=== PATIENT | female | born 1970 | race Caucasian/White ===

== ENCOUNTER 2019-07-26 03:31 | Inpatient (IN) | payer OTHER, SELFPAY ==
[2019-07-26] VITALS (16 sets, daily range): BP systolic 101–164; BP diastolic 70–103; PULSE 80–100; RESP 9–20; TEMP 36.1–36.4; O2SAT 97–100; BMI 16.0
--- NOTE | ~2019-07-26 | CT_ITS ---
EXAMINATION: CT brain wo con DATE: 07/26/2019 06:18 INDICATION: Altered mental status. TECHNIQUE: Computed tomography (CT) of the head was performed without intravenous contrast. The mA wa s adjusted according to patient size. Iterative reconstruction technique was employed. The dose-lengt h product was 605.33 mGy-cm. COMPARISON: None FINDINGS: There is no intracranial hemorrhage, acute infarction, or abnormal intracranial mass lesion . The ventricles are normal in size. There is mild mucosal thickening in the paranasal sinuses. The o rbits are normal. The mastoid air cells are normal. There are numerous masses in the neck and scalp. IMPRESSION: 1. Normal brain. 2. Masses in the neck and scalp, consistent with neurofibromatosis. Reviewed, dictated and finalized at location A.
--- NOTE | ~2019-07-26 | XR_ITS ---
EXAMINATION: XR chest 1V portable DATE: 07/26/2019 07:29 INDICATION: Altered mental status. TECHNIQUE: A single frontal view of the chest was obtained on 2 radiographs. COMPARISON: None. FINDINGS: There is mild scarring at the lung apices. Dina B-lines are noted, consistent with mild p ulmonary edema. No pleural effusion or pneumothorax. The heart size is normal. Multiple skin masses a re noted, consistent with neurofibromatosis. IMPRESSION: 1. Mild pulmonary edema. Reviewed, dictated and finalized at location A. IMPRESSION: 1. Mild pulmonary edema.
--- NOTE | 2019-07-26 04:07 | ED.AMS ---
HPI - Altered Mental Status General Chief Complaint: Overdose <Yosvany Whitney MD - Last Filed: 07/26/19 19:21> Stated Complaint: ?? overdose <Yosvany Whitney MD - Last Filed: 07/26/19 19:21> Time Seen by Provider: 07/26/19 07:29 <Yosvany Whitney MD - Last Filed: 07/26/19 19:21> History of Present Illness HPI narrative: Patient is a 49-year-old female who presents the ER with presumed alcohol intoxication but possible overdose as well. Police had found belongings at a bus stop but no caving guide. A further search of the surrounding area revealed a woman who was passed out in the grass in front of her zoroastrian. She had empty alcohol bottles strewn around her and also had prescription medication around her. Specifically she has quetiapine that was filled on 07/06/2019 that should have 40 pills left in it but is fully empty. These are 50 mg tablets appear to be immediate release. <Yosvany Whitney MD - Last Filed: 07/26/19 19:21> Related Data Home Medications: Home Medications Medication Instructions Recorded Confirmed albuterol sulfate 2 puff INHALATION Q6H PRN 07/26/19 07/26/19 finizdddae-tkzemsaxycppi-znpd 1 tablet PO Q6H PRN 07/26/19 07/26/19 divalproex 500 mg PO TID 07/26/19 07/26/19 fluticasone propionate 1 spray INTRANASAL DAILY PRN 07/26/19 07/26/19 hydroxyzine HCl 50 mg PO Q6H 07/26/19 07/26/19 mirtazapine 30 mg PO HS 07/26/19 07/26/19 pregabalin 200 mg PO BID 07/26/19 07/26/19 quetiapine 100 mg PO BID 07/26/19 07/26/19 sertraline 150 mg PO DAILY 07/26/19 07/26/19 venlafaxine [Effexor XR] 75 mg PO DAILY 07/26/19 07/26/19 <Yosvany Whitney MD - Last Filed: 07/26/19 19:21> Allergies/Adverse Reactions: Allergies Allergy/AdvReac Type Severity Reaction Status Date / Time No Known Allergies Allergy Verified 07/26/19 12:51 <Yosvany Whitney MD - Last Filed: 07/26/19 19:21> Review of Systems Review of Systems: ROS unobtainable: Yes unobtainable due to mental status <Yosvany Whitney MD - Last Filed: 07/26/19 19:21> PMFSH Past Medical History Medical History: Medical History (Updated 07/26/19 @ 18:48 by Any Chase PA-C) Migraines Neurofibromatosis Psychiatric illness <Yosvany Whitney MD - Last Filed: 07/26/19 19:21> Surgical History Surgical History: Surgical History Surgical history unknown <Yosvany Whitney MD - Last Filed: 07/26/19 19:21> Family History Family History: Family History Other Family history unobtainable <Yosvany Whitney MD - Last Filed: 07/26/19 19:21> Social History Social History: Social History (Updated 07/26/19 @ 18:45 by Any Chase PA-C) Social History: The patient is unable to provide any social history. Next of kin have not been identified as of yet. <Yosvany Whitney MD - Last Filed: 07/26/19 19:21> Exam Narrative: Exam Narrative: GENERAL: Intoxicated appearing, well-nourished, and in no acute distress. HEAD: Normocephalic, atraumatic. EYES: PERRLA and EOMI. ENT: Mucous membranes moist. CHEST: Clear to auscultation. No respiratory distress. HEART: Regular rate and rhythm. Normal peripheral pulses. ABDOMEN: Soft, nontender, nondistended, normal active bowel sounds. EXTREMITIES: Normal range of motion. No edema. SKIN: Warm, dry, innumerable neurofibromas to the entirety of the body. NEURO: Patient asleep, localizes sternal rub and pulls away in the extremities from noxious stimuli. <Yosvany Whitney MD - Last Filed: 07/26/19 19:21> Course Reevaluation(s) Reevaluation #1: Patient has received 2 L IV fluid. Blood pressure improved. Poison control contacted. Reports that peak symptoms should occur in the first 1 to 2 hours postingestion. Patient does have Fioricet as well in a empty bottle. She is positive for barbiturates but not for Tyl
[2019-07-26 04:11] LABS: Add Urine Microscopic? YES; Appearance Urine Clear (Clear); Bilirubin Urine Negative (Negative); Blood Urine Negative (Negative); Color Urine Yellow (Yellow); Glucose Urine UA Negative (Negative); Ketones Urine Negative (Negative); Leukocyte Esterase Ur Trace LEU/UL (Negative); Mucus Urine Rare /lpf; Nitrate Urine Negative (Negative); Protein Urine Negative (Negative); RBC Urine 0-2 /hpf (0-2); Specific Grav Ur 1.018 (1.001-1.035); Squamous Epithelial Cell Urine Occasional /hpf (Few); Urobilinogen Urine Negative mg/dL (<2.0)
[2019-07-26 04:14] LABS: Basophils Percent Auto 0.3 % (0.2-1.2); Eosinophils Absolute Auto 0.1 K/mm3 (0-0.3); Eosinophils Percent Auto 3.8 % (0-4.4); Hematocrit 36.6 % (37.0-47.0); Hemoglobin 11.8 g/dL (12.0-15.0); Immature Granulocyte Absolute 0.04 K/mm3 (0.00-0.031); Immature Granulocyte Percent A 1.2 % (0-0.5); Lymphocytes Absolute Auto 0.96 K/mm3 (0.9-3.2); Lymphocytes Percent Auto 27.9 % (18.3-44.2); Mean Corpuscular HGB Conc 32.2 g/dl (32-36); Mean Corpuscular Hemoglobin 29.3 pg (26-34); Mean Corpuscular Volume 90.8 fl (80-100); Mean Platelet Volume 8.7 fl (7.4-10.4); Monocytes Absolute Auto 0.4 K/mm3 (0.1-0.6); Monocytes Percent Auto 11.6 % (2.6-8.5); Neutrophils Absolute Auto 1.9 K/mm3 (1.3-6.7); Neutrophils Percent Auto 55.2 % (45.5-73.1); Platelet Count Result 178 k/mm3 (150-375); Red Blood Count 4.03 M/mm3 (4.2-5.4); Red Cell Distribution Width 14.3 % (11.5-14.5); White Blood Count 3.4 K/mm3 (4.5-10.0)
[2019-07-26 04:17] LABS: Partial Thromboplastin Time 28.1 SECONDS (22.3-36.8); Prothrombin Time 12.8 Seconds (11.1-14.7)
[2019-07-26 04:18] LABS: Alanine Aminotransferase 74 U/L (4-35); Albumin Level 3.6 g/dL (3.5-5.1); Alkaline Phosphatase 116 U/L (38-126); Aspartate Amino Transferase 94 U/L (14-36); Bilirubin,Total 0.2 mg/dL (0.2-1.3); Blood Urea Nitrogen 18 mg/dL (7-17); Calcium 8.6 mg/dL (8.4-10.2); Carbon Dioxide 26 mmol/L (22-30); Chloride 107 mmol/L (98-107); Estimated Glomerular Filt Rate > 60; Glucose 104 mg/dL (65-105); Potassium 3.7 mmol/L (3.4-5.0); Sodium 139 mmol/L (137-145)
[2019-07-26 04:21] LABS: Acetaminophen < 10 ug/mL (10-30); Ethanol 54 mg/dL (<10); Salicylate < 1.0 mg/dL (2-20)
--- NOTE | 2019-07-26 04:41 | PC.NURSE ---
POISON CONTROL CONTACTED AT THIS TIME. STATED THEY WOULD BE FAXING INFORMATION OVER ON POSSIBLE SEROQUEL OVERDOSE.
[2019-07-26 04:47] LABS: Barbiturate Screen Urine Positive (Negative); Benzodiazepines Screen Urine Negative (Negative)
[2019-07-26] MEDS: SODIUM CHLORIDE 0.9% IV 1,000 ML 999 ML IV CONT ×2 (04:47→09:08)
[2019-07-26 04:53] LABS: Cannabinoid Screen Urine Negative (Negative); Cocaine Screen Urine Negative (Negative); Methadone Screen Urine Negative (Negative); Opiate Screen Urine Negative (Negative); Phencyclidine Screen Urine Negative (Negative)
--- NOTE | 2019-07-26 05:17 | PC.NURSE ---
pt continues to only be responsive to pain at this time. pt continues to only moan when moved.
[2019-07-26 05:36] LABS: Amphetamine Screen Urine Positive (Negative)
[2019-07-26] MEDS: NALOXONE HCL INJ 2 MG/2 ML AMP (06:41)
--- NOTE | 2019-07-26 07:03 | PC.NURSE ---
PT GIVEN 4 MG OF NARCAN, NO CHANCE IN PATIENT STATUS.
[2019-07-26 08:26] LABS: Acetaminophen < 10 ug/mL (10-30)
--- NOTE | 2019-07-26 08:39 | PC.NURSE ---
pt is not responding to painful stimuli at this time.
--- NOTE | 2019-07-26 08:58 | ECG_ITS ---
Measurements Intervals [place] Rate: 91 P: 75 TN: 157 QRS: 68 QRSD: 75 T: 76 QT: 382 QTc: 472 Interpretive Statements SINUS RHYTHM NORMAL ECG Electronically Signed On 07-26-2019 9:07:55 CDT by Kj Cooper D.O.
--- NOTE | 2019-07-26 09:07 | ECG_ITS ---
Measurements Intervals [place] Rate: 84 P: 77 CT: 156 QRS: 74 QRSD: 89 T: 70 QT: 415 QTc: 492 Interpretive Statements SINUS RHYTHM MINIMAL Q WAVES- INFERIOR LEADS BORDERLINE T WAVE ABNORMALITY- HIGH LATERAL LEADS BASELINE ARTIFACT- I, II BORDERLINE ECG Electronically Signed On 07-26-2019 16:49:26 CDT by Kj Cooper D.O.
--- NOTE | 2019-07-26 11:23 | PC.NURSE ---
[place] from Poison control called to check on pt. Informed [place] of vitals and pts current status
--- NOTE | 2019-07-26 12:36 | ADMGEN ---
This patient, Niyah Bah, was admitted to Intensive Care Unit-9. Patient/family oriented to hospital policies and general routines including ID bracelet, bed and alarms, visiting hours, pain management, procedures, bathroom and other care routines, personal items, smoking policy, room service/diet, and visiting hours. Valuables list has been completed. Information on how to activate the Rapid Response Team has been discussed. Patient/Family are encouraged to report perceived risks to care and to ask questions if they do not understand what they are told or what they should do.
--- NOTE | 2019-07-26 12:52 | WPDCNINT ---
Assessment and Plan Assessment and plan (1) Drug overdose: Qualifiers: Encounter type: initial encounter Injury intent: undetermined intent Qualified Code(s): T50.904A - Poisoning by unspecified drugs, medicaments and biological substances, undetermined, initial encounter Code(s): T50.901A - Poisoning by unspecified drugs, medicaments and biological substances, accidental (unintentional), initial encounter Status: Acute Assessment and Plan: patient with possible drug overdose with quetiapine, prescription medication bottle was filled on 07/06/2019 that should have had 40 pills which was empty. - poison Control was notified - patient remains somnolent, was given Narcan in the ER without any benefit. - Patient received 2 L of IV fluid bolus - will give additional IV fluids 500 mL - patient started on bicarb infusion as she started to have borderline QT prolongation - will continue to monitor neuro status in the ICU - will watch for fever, patient can developed neuroleptics malignant syndrome, somnolence, hypotension, transaminitis - check CK level (2) Acute alteration in mental status: Code(s): R41.82 - Altered mental status, unspecified Status: Acute Assessment and Plan: likely related to medication overdose, alcohol intoxication. - UA was negative - urine drug screen was positive for barbiturates and amphetamines which could also be a reason for altered mental status (3) Alcohol intoxication: Code(s): F10.929 - Alcohol use, unspecified with intoxication, unspecified Status: Acute Assessment and Plan: alcohol level was 54 - started on thiamine and folic acid - [facility] protocol in place - monitor for alcohol withdrawal/DTs (4) DVT prophylaxis: Code(s): Z29.9 - Encounter for prophylactic measures, unspecified Status: Acute Assessment and Plan: SCDs/ Lovenox Additional Plan bedside RN has called the pharmacy to see if he could get an emergency contact the patient code status: Full code for now Critical care time spent: 41 minutes Due to a high probability of clinically significant, life threatening deterioration, the patient required my highest level of preparedness to intervene emergently and I personally spent this critical care time directly and personally managing the patient. This critical care time included obtaining a history; examining the patient; pulse oximetry; ordering and review of studies; arranging urgent treatment with development of a management plan; evaluation of patient's response to treatment; frequent reassessment; and discussions with other providers. It was exclusive of separately billable procedures and treating other patients and teaching time. Please see Assessment and Plan section and the rest of the note for further information on patient assessment and treatment [employer] Consult Note Consult date: 07/26/19 Time Seen: 12:44 Reason for consult: alcohol intoxication, medication overdose, HPI: Niyah Bah is a 49 year old female With past medical history of migraine and your fibromatosis presented the ED with presumed alcohol intoxication and possible overdose. According to the ER note police had found belongings at a bus stop but no on out, further /of the surrounding area revealed a woman who was passed out in the grass in front of the nondenominational. She had empty alcohol bottles around her and also prescription medication bottle specifically quetiapine which was filled on 07/06/2019 that should have had 40 pills and was empty. The quetiapine was 50 mg tablets of immediate release. Patient has been somnolent and intoxicated appearing in the ED, localized to sternal rub and withdrew to pain stimulus. Poison Control had been contacted and reported the peak symptoms should have occurred 1-2 hours after ingestion. Patient does also had of Fioricet bottle which is empty as well. urine tox screen was posi
[2019-07-26] MEDS: SODIUM BICARBONATE 8.4% 100 MEQ in DEXTROSE 5% 1,000 ML 1,000 ML 50 MEQ IV CONT (12:55)
[2019-07-26] MEDS: LACTATED RINGERS 500 ML 999 ML IV CONT (13:12)
[2019-07-26] MEDS: LACTATED RINGERS 1,000 ML 50 ML IV CONT (15:02)
[2019-07-26] MEDS: THIAMINE HCL 200 MG/2 ML VIAL 100 MG IV PUSH (15:24)
[2019-07-26] MEDS: FOLIC ACID 1 MG/0.2 ML INJ IV PUSH (15:24)
[2019-07-26 15:32] LABS: Creatine Kinase 38 U/L (30-135)
--- NOTE | 2019-07-26 17:00 | PM.IMHP ---
H&P: HPI History of Present Illness Chief complaint: Altered mental status. Narrative: Niyah Bah is a 49-year-old female who presented to the emergency department earlier this morning via EMS for evaluation of altered mental status. She is not able to provide any medical history as she is somnolent and only arousable to noxious stimuli at this time. As such, a majority of this information is obtained via a review of her electronic medical records. Unfortunately, I do not see that she has been at this facility previously. On review of her external medication history, it appears that she suffers from migraine headaches and has underlying psychiatric illnesses as she is on numerous medications for such including venlafaxine, sertraline, quetiapine, mirtazapine, hydroxyzine, and divalproex. By exam, she also has neurofibromatosis. In any event, local police found belongings at a bus stop early this morning, but no police officer. A further search of the area revealed a woman who was passed out in the grass in front of a oriental orthodox, with empty alcohol bottles and prescription bottles strewn around her. Specifically, an empty bottle of quetiapine, 50 milligram immediate release, prescribed to the patient, filled 07/06/2019 was found. By calculations, she should have 40 pills remaining. Thus it is been presumed that the patient took access quetiapine, and Poison Control was contacted. At the time my evaluation, she is asleep but does withdrawal to pain. She answers no questions and follows no commands. Review of Systems Review of Systems: Narrative: Unobtainable given clinical condition. [facility] Past Medical History Medical History (Updated 07/26/19 @ 18:48 by Any Chase PA-C) Migraines Neurofibromatosis Psychiatric illness Surgical History Surgical History Surgical history unknown Family History Family History Other Family history unobtainable Social History Social History (Updated 07/26/19 @ 18:45 by Any Chase PA-C) Social History: The patient is unable to provide any social history. Next of kin have not been identified as of yet. Meds Home Medications and Allergies Home Medications Medication Instructions Recorded Confirmed Type albuterol sulfate 2 puff INHALATION Q6H PRN 07/26/19 07/26/19 History wejccxdrkx-ruouxtidxtroh-aadj 1 tablet PO Q6H PRN 07/26/19 07/26/19 History divalproex 500 mg PO TID 07/26/19 07/26/19 History fluticasone propionate 1 spray INTRANASAL DAILY PRN 07/26/19 07/26/19 History hydroxyzine HCl 50 mg PO Q6H 07/26/19 07/26/19 History mirtazapine 30 mg PO HS 07/26/19 07/26/19 History pregabalin 200 mg PO BID 07/26/19 07/26/19 History quetiapine 100 mg PO BID 07/26/19 07/26/19 History sertraline 150 mg PO DAILY 07/26/19 07/26/19 History venlafaxine [Effexor XR] 75 mg PO DAILY 07/26/19 07/26/19 History Allergies Allergy/AdvReac Type Severity Reaction Status Date / Time No Known Allergies Allergy Verified 07/26/19 12:51 Vital Signs Vital Signs - 24 hr 07/26/19 03:38 07/26/19 04:52 07/26/19 05:15 Temperature 97.5 F L Pulse Rate 93 89 Respiratory Rate 14 12 14 Blood Pressure 110/71 101/71 Pulse Oximetry 100 100 07/26/19 05:34 07/26/19 06:28 07/26/19 07:34 Temperature Pulse Rate 86 92 86 Respiratory Rate 12 18 20 Blood Pressure 104/70 101/72 123/91 H Pulse Oximetry 97 100 100 07/26/19 09:38 07/26/19 12:27 07/26/19 13:20 Temperature Pulse Rate 83 80 80 Respiratory Rate 14 15 Blood Pressure 120/96 H 120/87 Pulse Oximetry 100 100 07/26/19 14:00 07/26/19 16:00 07/26/19 18:00 Temperature 96.9 F L Pulse Rate 80 83 85 Respiratory Rate 10 L 9 L 9 L Blood Pressure 109/82 134/85 127/89 Pulse Oximetry 100 100 99 Exam Narrative: Exam Narrative: General: Well-developed female resting in bed in no distress. HEENT: Normoce
[2019-07-26 22:05] LABS: Valproic Acid 13.2 ug/mL (50-120)
[2019-07-27] VITALS (13 sets, daily range): BP systolic 120–168; BP diastolic 81–106; PULSE 98–129; RESP 14–27; TEMP 35.9–37.4; O2SAT 91–100
[2019-07-27 04:40] LABS: Basophils Percent Auto 0.3 % (0.2-1.2); Eosinophils Percent Auto 0.6 % (0-4.4); Hematocrit 36.3 % (37.0-47.0); Hemoglobin 11.6 g/dL (12.0-15.0); Immature Granulocyte Absolute 0.03 K/mm3 (0.00-0.031); Immature Granulocyte Percent A 0.4 % (0-0.5); Lymphocytes Absolute Auto 0.39 K/mm3 (0.9-3.2); Lymphocytes Percent Auto 5.5 % (18.3-44.2); Mean Corpuscular Hemoglobin 28.8 pg (26-34); Mean Corpuscular Volume 90.1 fl (80-100); Mean Platelet Volume 8.8 fl (7.4-10.4); Monocytes Absolute Auto 0.4 K/mm3 (0.1-0.6); Monocytes Percent Auto 5.3 % (2.6-8.5); Neutrophils Absolute Auto 6.2 K/mm3 (1.3-6.7); Neutrophils Percent Auto 87.9 % (45.5-73.1); Platelet Count Result 168 k/mm3 (150-375); Red Blood Count 4.03 M/mm3 (4.2-5.4); Red Cell Distribution Width 14.2 % (11.5-14.5)
[2019-07-27 04:54] LABS: Alanine Aminotransferase 55 U/L (4-35); Albumin Level 3.2 g/dL (3.5-5.1); Alkaline Phosphatase 108 U/L (38-126); Aspartate Amino Transferase 65 U/L (14-36); Bilirubin,Total 0.4 mg/dL (0.2-1.3); Blood Urea Nitrogen 18 mg/dL (7-17); Calcium 8.5 mg/dL (8.4-10.2); Carbon Dioxide 26 mmol/L (22-30); Chloride 104 mmol/L (98-107); Estimated CRCL calculation 97 ml/min; Estimated Glomerular Filt Rate > 60; Glucose 78 mg/dL (65-105); Magnesium 1.6 mg/dL (1.6-2.3); Phosphorus 3.5 mg/dL (2.5-4.5); Potassium 3.6 mmol/L (3.4-5.0); Sodium 136 mmol/L (137-145)
[2019-07-27 04:55] LABS: Creatine Kinase 37 U/L (30-135)
[2019-07-27 05:58] LABS: Folic Acid 12.1 ng/mL (2.76->20)
[2019-07-27 06:22] LABS: Iron 63 ug/dL (37-170)
[2019-07-27 06:32] LABS: Percent Iron Saturation 23 % (20-50)
[2019-07-27 06:52] LABS: Thyroid Stimulating Hormone Reflex 0.959 uIU/mL (0.465-4.68)
[2019-07-27] MEDS: THIAMINE HCL 200 MG/2 ML VIAL 100 MG IV PUSH (08:05)
[2019-07-27] MEDS: ENOXAPARIN 40 MG/0.4 ML SYRINGE SUB-Q (08:05)
[2019-07-27] MEDS: FOLIC ACID 1 MG/0.2 ML INJ IV PUSH (08:05)
[2019-07-27] MEDS: LACTATED RINGERS 1,000 ML 50 ML IV CONT (11:40)
[2019-07-27] MEDS: SODIUM BICARBONATE 8.4% 100 MEQ in DEXTROSE 5% 1,000 ML 1,000 ML 50 MEQ IV CONT (11:40)
--- NOTE | 2019-07-27 12:22 | WPDINTPN ---
Progress Note: A&P Assessment and Plan (1) Drug overdose: Qualifiers: Encounter type: initial encounter Injury intent: undetermined intent Qualified Code(s): T50.904A - Poisoning by unspecified drugs, medicaments and biological substances, undetermined, initial encounter Code(s): T50.901A - Poisoning by unspecified drugs, medicaments and biological substances, accidental (unintentional), initial encounter Status: Acute Assessment and Plan: patient with possible drug overdose with quetiapine, prescription medication bottle was filled on 07/06/2019 that should have had 40 pills which was empty. - poison Control was notified - patient remains somnolent, was given Narcan in the ER without any benefit. - patient adequately fluid-resuscitated - remains on bicarb infusion for borderline QT prolongation - neurological status improving - poison Control had called with no further recommendations - will watch for fever, patient can developed neuroleptics malignant syndrome, somnolence, hypotension, transaminitis - check CK level (2) Acute alteration in mental status: Code(s): R41.82 - Altered mental status, unspecified Status: Acute Assessment and Plan: much improved: likely related to medication overdose, alcohol intoxication. - UA was negative - urine drug screen was positive for barbiturates and amphetamines which could also be a reason for altered mental status (3) Alcohol intoxication: Code(s): F10.929 - Alcohol use, unspecified with intoxication, unspecified Status: Acute Assessment and Plan: alcohol level was 54 - Continue thiamine and folic acid - [facility] protocol in place - monitor for alcohol withdrawal/DTs (4) DVT prophylaxis: Code(s): Z29.9 - Encounter for prophylactic measures, unspecified Status: Acute Assessment and Plan: SCDs/ Lovenox Additional Plan will call family and update code status: Full code for now Critical care time spent: 32 minutes Due to a high probability of clinically significant, life threatening deterioration, the patient required my highest level of preparedness to intervene emergently and I personally spent this critical care time directly and personally managing the patient. This critical care time included obtaining a history; examining the patient; pulse oximetry; ordering and review of studies; arranging urgent treatment with development of a management plan; evaluation of patient's response to treatment; frequent reassessment; and discussions with other providers. It was exclusive of separately billable procedures and treating other patients and teaching time. Please see Assessment and Plan section and the rest of the note for further information on patient assessment and treatment Subjective Date/time seen: 07/27/19 12:22 Reason for consult: alcohol intoxication, Possible medication overdose, 07/27/2019: Patient seen and examined this morning. Is awake, alert, follows simple commands, speech is garbled, able to answer few questions where speech Is understandable. Patient is hemodynamically stable with adequate urine output, afebrile, LFTs trending down . Patient denies any chest pain, shortness of breath, abdominal pain, nausea, vomiting. complains of right wrist pain. Review of Systems Review of Systems: All systems reviewed & are unremarkable except as noted in HPI and below Exam Const: General: comfortable and no acute distress HENMT: Mouth: Yes moist mucous membranes Eyes: Sclera: sclerae normal Pupils: Equal, round and reactive pupils present Neck: Neck: supple and no JVD Resp: Effort & Inspection: normal respiratory effort Auscultation: clear to auscultation bilaterally Cardio: Rate: regular rate Rhythm: regular rhythm GI: Inspection: non-distended GI Palp: Yes Soft to palpation and No Tenderness to palpation present (GI) Auscultation: normal bow
--- NOTE | 2019-07-27 14:17 | PM.IMPN ---
Progress Note: A&P Assessment and Plan (1) Altered mental status: Code(s): R41.82 - Altered mental status, unspecified Status: Acute Assessment and Plan: [place] related to Seroquel overdose, alcohol, and possibly drug use. CT brain showing normal brain but does have masses in the neck and scalp, consistent with neurofibromatosis. Patient's mental status is improving. Continue to monitor to ensure that she returns to baseline. (2) Drug overdose: Qualifiers: Encounter type: initial encounter Injury intent: undetermined intent Qualified Code(s): T50.904A - Poisoning by unspecified drugs, medicaments and biological substances, undetermined, initial encounter Code(s): T50.901A - Poisoning by unspecified drugs, medicaments and biological substances, accidental (unintentional), initial encounter Status: Acute Assessment and Plan: Patient admits to Seroquel overdose to probably explain her altered mental status. Patient remains on bicarb given mild QT prolongation. She admits taking the Seroquel in an attempt end her life. Will repeat EKG. She will need to see Crisis for psychiatric placement once she is clinically stable. (3) Suicide attempt: Code(s): T14.91XA - Suicide attempt, initial encounter Status: Acute Assessment and Plan: As above. (4) Positive urine drug screen: Code(s): R82.5 - Elevated urine levels of drugs, medicaments and biological substances Status: Acute Assessment and Plan: Urine drug screen is positive for barbiturates (patient does have a prescription for orxgycknnc-ubjrqlvygxclt-huadnydr for migraine headaches) and amphetamines. 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 She denies other drug use. (5) Alcohol intoxication: Qualifiers: Complication of substance-induced condition: uncomplicated Qualified Code(s): F10.920 - Alcohol use, unspecified with intoxication, uncomplicated Code(s): F10.929 - Alcohol use, unspecified with intoxication, unspecified Status: Acute Assessment and Plan: Alcohol level elevated on admission. CIWA protocol started. She has been running 0-6 since admission. Continue thiamine and folic acid. (6) Elevated LFTs: Code(s): R79.89 - Other specified abnormal findings of blood chemistry Status: Acute Assessment and Plan: AST and ALT slightly elevated but improved today. Most likely related to above. Continue to monitor. (7) DVT prophylaxis: Code(s): Z29.9 - Encounter for prophylactic measures, unspecified Status: Acute Assessment and Plan: [place] Subjective Date/time seen: 07/27/19 14:17 Interval history: 49yo female with neurofibromatosis brought in by EMS for altered mental status. Patient is somnolent and barely opens eyes. Her speech is clear but very soft. She is oriented x3 (thought it was May). She ate well earlier. She admits to taking the Seroquel in an attempt to end her life (she was asked twice at different times). She states the reason was that she was 'tossed out on the street . Hx overall difficult to obtain since she continues to fall asleep. Exam Narrative: Exam Narrative: Gen - NARD lying almost flat in bed Chest - clear bilaterally, nml RR CV - RRR S1/S2; Tele showing no significant dysrhythmias Abd -soft. Nondistended. Positive bowel sounds. Ext -no pedal edema. 2+ DP pulses bilaterally. Neuro -somnolent but arouses easily to voice. She is oriented x3 (except for month). No focal weakness on limited exam. Speech is clear but very soft. Skin -multiple round well demarcated soft tissue nodules of various sizes throughout her body consistent with neurofibromatosis Objective Data Vital Signs Vital Signs: Vital Signs - 24 hr 07/26/19 16:00 07/26/19 18:00 07/26/19 19:58 Temperature 96.9 F L 97 F L Pulse Rate 83 85 85 Respi
--- NOTE | 2019-07-27 16:47 | ECG_ITS ---
Measurements Intervals [place] Rate: 104 P: 59 CO: 136 QRS: 50 QRSD: 83 T: 52 QT: 336 QTc: 443 Interpretive Statements SINUS TACHYCARDIA BASELINE ARTIFACT- I, II, III, AVR, AVL, AVF, V1-V2 ABNORMAL ECG Electronically Signed On 07-28-2019 9:17:15 CDT by Kj Cooper D.O.
[2019-07-28] VITALS (8 sets, daily range): BP systolic 133–150; BP diastolic 85–99; PULSE 98–113; RESP 18–28; TEMP 36.8–37.3; O2SAT 91–97
[2019-07-28 04:05] LABS: Beta HCG Quantitative < 2.39 mIU/ML
[2019-07-28 04:12] LABS: Alanine Aminotransferase 46 U/L (4-35); Albumin Level 3.1 g/dL (3.5-5.1); Alkaline Phosphatase 121 U/L (38-126); Aspartate Amino Transferase 50 U/L (14-36); Bilirubin,Total 0.2 mg/dL (0.2-1.3); Blood Urea Nitrogen 11 mg/dL (7-17); Calcium 7.8 mg/dL (8.4-10.2); Carbon Dioxide 26 mmol/L (22-30); Chloride 104 mmol/L (98-107); Estimated CRCL calculation 89 ml/min; Estimated Glomerular Filt Rate > 60; Glucose 116 mg/dL (65-105); Potassium 3.6 mmol/L (3.4-5.0); Sodium 132 mmol/L (137-145)
[2019-07-28 04:53] LABS: Valproic Acid < 10.0 ug/mL (50-120)
[2019-07-28] MEDS: THIAMINE HCL 200 MG/2 ML VIAL 100 MG IV PUSH (09:17)
[2019-07-28] MEDS: FOLIC ACID 1 MG/0.2 ML INJ IV PUSH (09:18)
[2019-07-28] MEDS: ENOXAPARIN 40 MG/0.4 ML SYRINGE SUB-Q (09:18)
--- NOTE | 2019-07-28 13:52 | PM.TDS ---
Transfer Discharge Sum: Prov Provider Date of admission: 07/26/19 08:59 Primary care physician: Jarrod Payan, Admitting clinician: Vidal Vigil MD Consults: 07/26/19 09:00 Consult to Physician Routine Comment: Consulting Provider: Oumar Moran Reason for consultation: Overdose, altered mental status Has provider been notified: Yes Attending physician on discharge: Yury Vigil Discharging clinician: Yury Vigil Anticipated date of transfer: 07/28/19 Receiving physician/facility: [place]; Discussed with Dr Vega DS: Diagnosis Admitting Diagnosis Admitting Diagnosis: Poisoning by unspecified drugs, medicaments and biological substances, undetermined, initial encounter Discharge Diagnosis (1) Altered mental status: Qualifiers: Altered mental status type: somnolence Qualified Code(s): R40.0 - Somnolence Code(s): R41.82 - Altered mental status, unspecified Status: Acute Assessment and Plan: [place] related to Seroquel overdose, alcohol, and drug use. CT brain showing normal brain but does have masses in the neck and scalp, consistent with neurofibromatosis. Patient's mental status back to normal. (2) Drug overdose: Qualifiers: Encounter type: initial encounter Injury intent: undetermined intent Qualified Code(s): T50.904A - Poisoning by unspecified drugs, medicaments and biological substances, undetermined, initial encounter Code(s): T50.901A - Poisoning by unspecified drugs, medicaments and biological substances, accidental (unintentional), initial encounter Status: Acute Assessment and Plan: Patient admits to Seroquel overdose to explain her altered mental status. Patient treated with bicarb given mild QT prolongation. She admits taking the Seroquel in an attempt to end her life. QTc stable on repeat EKGs. Seen by [facility] for psychiatric placement with plans now to transfer to [place]. Case discussed with the accepting physician. (3) Suicide attempt: Code(s): T14.91XA - Suicide attempt, initial encounter Status: Acute Assessment and Plan: As above. (4) Positive urine drug screen: Code(s): R82.5 - Elevated urine levels of drugs, medicaments and biological substances Status: Acute Assessment and Plan: Urine drug screen is positive for barbiturates (patient does have a prescription for abeuicdeey-cihfxsjwxsgpc-grwbkeqw for migraine headaches) and amphetamines. 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 She denies other drug use. (5) Alcohol intoxication: Qualifiers: Complication of substance-induced condition: uncomplicated Qualified Code(s): F10.920 - Alcohol use, unspecified with intoxication, uncomplicated Code(s): F10.929 - Alcohol use, unspecified with intoxication, unspecified Status: Acute Assessment and Plan: Alcohol level elevated on admission. CIWA protocol started. She has been running 0-6 since admission. Thiamine and folic acid started. (6) Elevated LFTs: Code(s): R79.89 - Other specified abnormal findings of blood chemistry Status: Acute Assessment and Plan: AST and ALT slightly elevated on admission at 94 and 74 respectfully. Levels trended down daily. [place] related to alcohol. Transfer Discharge Sum: Med Medications Active and Home Medications: Home Medications albuterol sulfate 2 puff INHALATION Q6H PRN 07/26/19 [History Confirmed 07/26/19] emafxohwzl-ezvhzklckecnk-levq 1 tablet PO Q6H PRN 07/26/19 [History Confirmed 07/26/19] divalproex 500 mg PO TID 07/26/19 [History Confirmed 07/26/19] fluticasone propionate 1 spray INTRANASAL DAILY PRN 07/26/19 [History Confirmed 07/26/19] hydroxyzine HCl 50 mg PO Q6H 07/26/19 [History Confirmed 07/26/19] mirtazapine 30 mg PO HS 07/26/19 [History Confirmed 07/26/19] pregabalin 200 mg PO BID 07/26/19 [History
--- NOTE | 2019-07-28 15:47 | PC.NURSE ---
This patient, Niyah Bah, was transferred to [[facility] room 121a ] on 07/28/19 at 1547. Personal belongings sent with patient. Belongings list checked and signed with receiving [ ]. Report given to [ Belinda REMY]. Appropriate documentation sent with patient.
== END 2019-07-28 15:47 | DRG 817 ==
LOC: ANHED 09:03 → ANHICU 11:24
PROVIDERS: Emergency Medicine; Internal Medicine; Physician Assistant; Admitting Provider Internal Medicine; Emergency Provider Emergency Medicine; PCP Family Medicine; Visit Provider Internal Medicine
DX: T43.592A Poisoning by other antipsychotics and neuroleptics, intentional self-harm, initial encounter (principal); F10.129 Alcohol abuse with intoxication, unspecified; Y90.2 Blood alcohol level of 40-59 mg/100 ml; R41.82 Altered mental status, unspecified; R82.5 Elevated urine levels of drugs, medicaments and biological substances; R79.89 Other specified abnormal findings of blood chemistry; G43.909 Migraine, unspecified, not intractable, without status migrainosus; F99 Mental disorder, not otherwise specified; Q85.00 Neurofibromatosis, unspecified; Z79.899 Other long term (current) drug therapy
CPT/HCPCS: 36415; 70450; 71045; 80053; 80164; 80307; 81001; 82550; 82607; 82728; 82746; 83540; 83550; 83735; 84100; 84443; 84702; 85025; 85610; 85730; 93005; 96361; 96374; 99285; A9270; J1650; J2310; J3411; J7030; J7070; J7120